=== PATIENT | male | born 1960 | race Caucasian/White ===

== ENCOUNTER 2016-09-06 23:37 | Emergency (ER) | payer OTHER ==
--- NOTE | 2016-09-07 01:46 | ED ORDER SUMMARY ---
..... Patient: TYRONE HERNANDEZ I OrderSheet [facility] VisitID: [id number] [place] [address] 56y, M Registration Date/Time: 09/06/2016 ORDER SHEET Weight: 92.9 kg Allergies: No Known Drug Allergy GENERAL ORDERS: UA-Culture if indicated [facility]gent (23:51 [facility]2016 [facility] (Ack 0:05 AMcQuoid ER Tech1) (0:10 EInderbitzen R.N.) Amylase Urgent (23:51 09/06/2016 [facility]) (Ack 0:05 AMcQuoid ER Tech1) (0:10 EInderbitzen R.N.) Lipase Urgent (23:51 09/06/2016 [facility]) (Ack 0:05 AMcQuoid ER Tech1) (0:10 EInderbitzen R.N.) Cardiac Panel Stat (23:51 09/06/2016 [facility]) (Ack 0:05 AMcQuoid ER Tech1) (0:10 EInderbitzen R.N.) PT with INR Urgent (23:51 09/06/2016 [facility]) (Ack 0:05 AMcQuoid ER Tech1) (0:10 EInderbitzen R.N.) Urine Drug Screen Urgent (23:51 09/06/2016 [facility]) (Ack 0:05 AMcQuoid ER Tech1) (0:10 EInderbitzen R.N.) NPO (23:51 09/06/2016 [facility]) (Ack 0:05 AMcQuoid ER Tech1) (0:10 EInderbitzen R.N.) Abd Series 2V Abd/1V Chest (upper) Urgent (01:09 09/07/2016 [employer] DO) (Ack 1:13 AMcQuoid ER Tech1) (1:32 [facility]) MEDICATION ORDERS: GI Cocktail WHITE PO 30 mL with Lidocaine Viscous Mouth/Throat 15 mL, Maalox Plus Oral 15 mL (NOW) (00:34 09/07/2016 [employer] DO) (0:43 EInderbitzen R.N.) IV FLUIDS: IV NS : initial bolus 1000 mL (1000 mL/hr), then 500 mL/hr for X2 (NOW) (23:50 09/06/2016 [facility]) (Ack 23:59 EInderbitzen R.N.) (0:09 EInderbitzen R.N.) Zofran IV 4 mg (NOW) (23:50 09/06/2016 [facility]) (Ack 23:59 EInderbitzen R.N.) (0:10 EInderbitzen R.N.) Protonix IVP 40mg 40 mg (Mix in NS 10ml over 2min) (01:09 09/07/2016 [facility]) (Ack 1:15 RCollier R.N.) (1:23 RCollier R.N.) ORDER SHEET NOTES: [Electronically signed by Gali Choudhury R.N. (01:54 09/07/2016)] [Electronically signed by Remington Gaitan DO (02:34 09/07/2016)] [Electronically locked/signed by Gali Choudhury R.N. (01:54 09/07/2016)]
--- NOTE | 2016-09-07 01:46 | ED CLINICAL REPORT ---
Clinical Report - Physicians/Mid Levels [facility] [address] [place] [place] [address] 09/06/2016 23:37 Patient: TYRONE HERNANDEZ I Time Seen: 23:47. Arrived- By private vehicle. Historian- patient. HISTORY OF PRESENT ILLNESS Chief Complaint: ABDOMINAL PAIN. This started just prior to arrival and is still present. It was gradual in onset and has been waxing/waning. At its maximum, severity described as moderate. When seen in the E.D., severity described as moderate. Modifying factors- worsened by movement. Relieved by rest. It is described as "pain" and it is described as located in the epigastric area and left upper quadrant and in the upper abdomen and radiating to the upper back. No nausea, vomiting or diarrhea. Similar symptoms previously: ( saw pcp 3 months ago for same symptoms). Evaluation/treatment: abdominal CT scan and labs. Recent medical care: Not recently seen/assessed. REVIEW OF SYSTEMS No constipation, black stools, hematemesis, difficulty with urination or pain with urination. No urinary frequency, bloody stools, fever, headache or sore throat. No chest pain, difficulty breathing, cough or back pain. All systems otherwise negative, except as recorded above. PAST HISTORY Negative. See nurses notes. Problems: no known problems. Surgeries: No history of previous surgery. Additional Surgeries: no known surgeries. Medications: None. Allergies: No Known Drug Allergy. SOCIAL HISTORY Never smoker. No alcohol use or drug use. Is a local resident. ADDITIONAL NOTES The nursing notes have been reviewed. PHYSICAL EXAM Vital Signs: 09/06/2016 23:43 BP: 135/89. HR: 97. RR: 18. O2 saturation: 97%. Temp: 98.6 F. Appearance: Alert. Oriented X3. Patient in mild distress. Eyes: Eyes normal inspection. No scleral icterus or pale conjunctivae. ENT: Pharynx normal. No pharyngeal erythema or tonsillar exudate. The mucous membranes are not dry. Neck: Normal inspection. Neck supple. CVS: Normal heart rate and rhythm. Heart sounds normal. Pulses normal. Respiratory: No respiratory distress. Breath sounds normal. Abdomen: Soft. Moderate tenderness in the upper abdomen, epigastric area and left upper quadrant. No Alcantara's sign present. No organomegaly. No mass. Back: Normal inspection. Skin: Skin warm and dry. Normal skin color. No rash. Normal skin turgor. Extremities: Extremities exhibit normal ROM. No lower extremity edema. Neuro: Oriented X 3. No motor deficit. LABS, X-RAYS, AND EKG Chest X-ray: No acute disease. Normal lung markings present. Normal heart size. Mediastinum normal. Great vessels normal. No infiltrate. Views: PA. Technique: good. The X-rays were interpreted contemporaneously by me. KUB: No acute disease. Gas pattern normal. Views: two-view AP. Technique: good. The X-rays were interpreted contemporaneously by me. Laboratory Tests: UA-Culture if indicated: (ALDEN: 09/06/2016 00:05) ( [facility] 09/07/2016 00:26) Final results Test Result Flag Units (Reference) URINE COLOR YELLOW URINE APPEARANCE CLEAR URINE GLUCOSE NEGATIVE (NEGATIVE) URINE BILIRUBIN NEGATIVE (NEGATIVE) URINE KETONE NEGATIVE (NEGATIVE) URINE SPECIFIC GRAVITY >= 1.030 (1.010-1.030) URINE PH 6.0 (5.0-8.0) URINE PROTEIN NEGATIVE (NEGATIVE) URINE UROBILINOGEN 0.2 EU/dL (0.2-1.0) URINE NITRITE NEGATIVE (NEGATIVE) URINE BLOOD TRACE-INTACT (NEGATIVE) URINE LEUK ESTERASE NEGATIVE (NEGATIVE) URINE RBC 0-1 rbc/hpf (0-1) URINE WBC 0-1 wbc/hpf (0-1) URINE EPITHELIAL CELLS NONE SEEN EPI/hpf (0-5) URINE BACTERIA NONE SEEN (NONE SEEN) URINE COMMENT CULT NOT INDICATED URINE CULTURES ARE SET-UP BASED ON THE FOLLOWING CRITERIA:POSITIVE NITRITEPOSITIVE LEUKOCYTE ESTERASEGREATER THAN 10 WHITE BLOOD CELLSMODERATE (2+) OR GREATER BACTERIA CBC w Diff: (ALDEN: 09/06/2016 00:05) ( [facility] 09/07/2016 00:18) Final results Test Result Flag Units (Reference) WHITE BLOOD COUNT 4.5 K/uL (4.5-11.5) RED BLOOD COUNT 5.22 M/uL (4.50-5.90) HEMOGLOBIN 15.5 gm/dL (13.5-17.5) HEMATOCRIT 44.7 % (41.0-53.0) MEAN CELL VOLUME 86 fL (80-100) MEAN CORPUSCULAR HGB 30 pg (26-34) MEAN CORPUSCULAR HGB CONC 35 g/dL (31-37) RED CELL DISTRIBUTION WIDTH 12.8 % (11.6-14.8) PLATELET COUNT 165 K/uL (150-400) NEUTROPHIL % 43.7 L % (50-75) LYMPH % 41.5 H % (25-40) MONO % 7.4 % (3-14) EOSINOPHIL % 6.8 H % (0-4) BASOPHIL % 0.6 % (0-2) PT with INR: (ALDEN: 09/06/2016 00:05) ( [facility] 09/07/2016 00:26) Final results Test Result Flag Units (Reference) INR 0.9 (0.8-1.2) Low Intensity Therapy: INR 1.5-2.0 PT range 18.5-23.1Mod.Intensity Therapy: INR 2.0-3.0 PT range 23.1-31.5High Intensity Therapy: INR 2.5-3.5 PT range 27.4-35.5High Intensity Therapy 2: INR 3.0-4.0 PT range 31.5-39.3 Urine Drug Screen: (ALDEN: 09/06/2016 00:05) ( [facility] 09/07/2016 00:33) Final results Test Result Flag Units (Reference) AMPHETAMINE/METHAMPHETAMINE NEGATIVE (NEGATIVE) BARBITURATE NEGATIVE (NEGATIVE) BENZODIAZEPINE NEGATIVE (NEGATIVE) CANNABINOID NEGATIVE (NEGATIVE) COCAINE NEGATIVE (NEGATIVE) ECSTASY NEGATIVE (NEGATIVE) METHADONE NEGATIVE (NEGATIVE) OPIATE NEGATIVE (NEGATIVE) The urine drug screen is a qualitative screening test fordrug overdose and abuse. All screen results should beconsidered as presumptive.Drugs screened for are as follows:BenzodiazepinesCocaineAmphetamines/MetamphetaminesTHC (Tetrahydrocannabinol)OpiatesBarbituratesEcstasyMethadonePositive results are unconfirmed. For confirmation, notifythe lab for the specimen to be sent to the reference lab.All confirmations must be performed by a differentmethodology.The ingestion of natural herbal and plant productscontaining Ephedra/Ephedra metabolites can produce in urineone or more substances capable of cross reacting withamphetamine/methamphetamine immunoassays. These testsprovide a preliminary result only. A more specificalternative chemical method must be used to obtain aconfirmed analytical result. Lipase: (ALDEN: 09/06/2016 00:05) ( MsgRcvd 09/07/2016 00:29) Final results Test Result Flag Units (Reference) LIPASE 154 U/L (73-393) AMYLASE 33 U/L (25-115) CHEM 13 PANEL: (ALDEN: 09/06/2016 00:05) ( MsgRcvd 09/07/2016 00:41) Final results Test Result Flag Units (Reference) GLUCOSE 131 H mg/dL (70-110) BUN 15 mg/dL (7-18) CREATININE 1.1 mg/dL (0.6-1.3) Estimated GFR >60 mL/min Estimated GFR- >60 mL/min Note: Persistent reduction over 3 months in eGFR<60 mL/min/1.73 m2 defines CKD. Patients with eGFR values>=60 mL/min/1.73 m2 may also have CKD if evidence ofpersistent proteinuria. Additional information may be foundat www.kidney.org. SODIUM 138 mmol/L (136-145) POTASSIUM 3.7 mmol/L (3.5-5.1) CHLORIDE 102 mmol/L (98-107) CARBON DIOXIDE 25 mmol/L (21-32) CALCIUM 9.0 mg/dL (8.5-10.1) TOTAL PROTEIN 7.3 g/dL (6.4-8.2) ALBUMIN 3.9 g/dL (3.3-5.0) BILIRUBIN, TOTAL 0.4 mg/dL (0.0-1.0) ALKALINE PHOSPHATASE 78 U/L (46-116) AST (SGOT) 49 H U/L (15-37) ALT (SGPT) 61 U/L (12-78) MAGNESIUM 2.0 mg/dL (1.8-2.4) CPK 95 U/L (24-260) TROPONIN I <0.05 L ng/mL (0.00-1.5) TROPONIN REFERENCE RANGE:<0.1 NEGATIVE0.1-1.5 INDETERMINANT>1.5 POSITIVE . Pulse Oximetry: 09/06/2016 23:43 O2 saturation: 97%. (FIO2 - room air). Interpretation: normal. PROGRESS AND PROCEDURES Course of Care: 1 L NS IV. Zofran 4mg IV. GI Cocktail WHITE PO 30 mL with Lidocaine Viscous Mouth/Throat 15 mL, Maalox Plus Oral 15 mL (NOW) 01:45 09/07/16. Patient is stable. Physical exam findings are improved. Symptoms much better. Most consistent with gastritis vs PUD. Pt will need additional work up - likely scope. Pain nearly resolved immediately after GI cocktail. No signs of perforated ulcer. No melena or hematochezia or hematemesis. He has had similar symptoms over the past several months (saw pcp 3 months ago for same). Patient/family counseled. Old ED records reviewed. (two prior visits to [facility] ED for abdominal pain). Disposition: Discharged. Condition: stable and improved. CLINICAL IMPRESSION Acute epigastric abdominal pain of unknown cause. Acute gastritis. No alcoholic gastritis or hemorrhagic gastritis. INSTRUCTIONS Do not work for two days. Drink plenty of fluids. No alcohol. Avoid alcohol and NSAIDS. Examples of NSAIDS include aspirin, ibuprofen (Advil) and naproxen (Aleve). Avoid fatty, fried/greasy, lactose-containing (such as milk, cheese and ice cream), salty and spicy foods. Warnings: Further evaluation is necessary in order to obtain test results and conduct further tests (You will probably need a scope procedure to look into your stomach and possibly an ultrasound of your gallbladder). It is very important to follow up with a physician. CONTROLLED SUBSTANCE WARNINGS. GENERAL WARNINGS: Return or contact your physician immediately if your condition worsens or changes unexpectedly, if not improving as expected, or if other problems arise. Prescription Medications: Prilosec 20 mg capsules: Take 1 capsule orally once daily. Dispense fifteen (15). No refills. Substitution is permissible. Follow-up: Follow up with your doctor [facility] tomorrow. Follow-up with: Remington Scott MD, General Surgeon, , [facility], [address] [facility] [address], [place], [address] Follow up tomorrow. (Electronically signed by Remington Gaitan DO 09/07/2016 2:34)
--- NOTE | 2016-09-07 01:46 | ED NURSING NOTES ---
Clinical Report - Nurses [facility] [address] [place] [address] 09/06/2016 23:37 [id number] Triage time 23:40 Sep 06 2016. Acuity: LEVEL 3. Chief Complaint: (abdominal pain). 23:43 09/06/16. SEPSIS SCREEN: Sepsis Screen. Negative (no infection suspected/documented). SUNI COMA SCORE: Suni Coma Scale: 15- eyes open spontaneously (4); best verbal response- oriented x 4 (5); best motor response- obeys commands (6). --23:46 Gali Choudhury R.N. 23:43 09/06/16. BP: 135/89. HR: 97. RR: 18. O2 saturation: 97%. Temp: 98.6 F. Pain level now 7/10. --23:46 Gali Choudhury R.N. 23:46 09/06/16. --23:46 Gali Choudhury R.N. Weight: 92.9 kg. Height/Length: 68 inches. BMI: 31.1. --23:39 Gali Choudhury R.N. Medications None. --23:44 Gali Choudhury R.N. Medication/allergy information source: the patient. --23:46 Gali Choudhury R.N. Allergies No Known Drug Allergy. --23:44 Gali Choudhury R.N. History Arrived by private vehicle. Historian: patient. Accompanied by family. This started just prior to arrival. No fever, weakness, cough, difficulty breathing or skin rash. Denies muscle aches. Treatment [employer] ST[employer] MERCHANDISER: None. SOCIAL HX: Never smoker. No alcohol use or drug use. ABUSE ASSESSMENT: No report of abuse. SELF HARM ASSESSMENT: A self harm assessment was performed. The patient answered "no" to the question "Have you recently felt down, depressed, or hopeless?", "Have you noticed less interest or pleasure in doing things?", "Do you have thoughts of harming or killing yourself?", "Are you here because you tried to hurt yourself?", "Have you ever tried to hurt yourself before today?", "Have you recently had thoughts about harming or killing others?" and "Do you have any dangerous items in your possession?". NUTRITIONAL RISK ASSESSMENT: The nutritional risk assessment revealed no deficiencies. FUNCTIONAL ASSESSMENT: Functional assessment: no impairments noted. LEARNING NEEDS ASSESSMENT: The learning needs assessment revealed no barriers. SKIN INTEGRITY ASSESSMENT: Skin integrity risk assessment completed. No skin integrity risk identified. --23:46 Gali Choudhury R.N. ( Sudden onset of upper abdominal pain, both left and right sides, pain radiates through to back left side. Constant, aching deep inside). --23:46 Gali Choudhury R.N. PROBLEMS: no known problems. ADDITIONAL SURGERIES: no known surgeries. Interventions ID band on patient. --23:46 Gali Choudhury R.N. PHYSICAL ASSESSMENT 23:49 09/06/16. Ambulatory to room. GENERAL / NEURO / PSYCH: Alert. Oriented X 4. Appears in pain. HEENT: Pupils equal, round and reactive to light. No facial asymmetry noted. Mucous membranes are pink. RESPIRATORY: Respirations not labored. Chest nontender. Breath sounds within normal limits. CVS: Capillary refill less than 2 seconds. Pulses within normal limits. GI / : Abdomen soft and nontender and normal bowel sounds. SKIN: Skin intact. Skin is warm and dry. Normal skin turgor. --23:49 Gali Choudhury R.N. NURSING PROGRESS NOTES 23:49 09/06/16. The initial plan of care for this patient includes an assessment with efforts to address the presence of pain; impairment of the genitourinary system. This plan of care was discussed with the patient. Patient gowned. Reassurance given. Patient identifiers checked. Call light placed in reach. Bed placed in lowest position. Brakes of bed on. Patient ready for evaluation. --23:49 Gali Choudhury R.N. 23:49 09/06/16. ( Patient instructed to provide urine sample.). --23:49 Gali Choudhury R.N. 00:05 09/07/2016 Site #1 started via IV in the right antecubital space with an 20g angiocath, with aseptic technique and good blood return; one attempt. Blood drawn: rainbow set. Labeled in the presence of the patient and sent to the lab. Saline lock flushed with 10 mL saline. --00:09 Gali Choudhury R.NSebastián 00:05 09/07/2016 Started bag #1 1000 mL IV Fluids IV NS (Saline); at 1000 mL/hr over 1 hour(s) via site #1 via IV pump. Allergies verified and confirmed 5 rights. IV patency established. IV site checked: no pain, redness, or swelling. IV flushed thoroughly pre- and post-medication administration. --00:09 Gali Choudhury R.N. 00:06 09/07/2016 Zofran (Ondansetron HCl) IVP 4 mg given over 1 minute(s) via site #1. Allergies verified and confirmed 5 rights. IV patency established. IV site checked: no pain, redness, or swelling. IV flushed thoroughly pre- and post-medication administration. IVP given by RN. --00:10 Gali Choudhury R.NSebastián 00:40 09/07/2016 GI COCKTAIL WHITE (Simethicone) PO Oral Suspension 30 mL given. Allergies verified and confirmed 5 rights. --00:43 Gali Choudhury R.NSebastián 00:59 09/07/16. BP: 121/81. HR: 72. RR: 18. O2 saturation: 97%. --00:59 Gali Choudhury R.NSebastián 00:59 09/07/16. Reassessment after medication administered. He has had no adverse reaction. Overall patient status is improved- he states feels better. ( still has pain on left side both front and back.). --00:59 Gali Choudhury R.N. 01:20 09/07/2016 PROTONIX (Pantoprazole Sodium) IVP 40 mg given diluted in NS 10mL over 2 minute(s) via site #1. Allergies verified and confirmed 5 rights. IV patency established. IV site checked: no pain, redness, or swelling. IV flushed thoroughly pre- and post-medication administration. IVP given by RN. --01:23 Lynette Fernandez R.N. Patient transported to radiology by stretcher with tech. --01:23 Lynette Fernandez R.N. Patient returned from radiology by stretcher with tech. --01:31 Lynette Fernandez R.N. DISPOSITION / DISCHARGE 01:05 09/07/2016 IV Fluids IV NS Discontinued: completed. Total amount infused: 1000 mL. IV patency established. IV site checked: no pain, redness, or swelling. IV flushed thoroughly. --01:52 Gali Choudhuyr R.N. 01:48 09/07/2016 Site #1 removed upon discharge. Catheter intact. Pressure dressing applied. --01:53 Gali Choudhury R.N. 01:53 09/07/16. Departure time: 01:Sep 07 2016. Condition at departure: improved and stable. The goals identified in the patient's plan of care were met. No learning barriers present. Reviewed medication(s) side effects, precautions, dosing and course information. Prescription(s) given to the patient. Patient and spouse verbalized understanding. Written instructions provided in Hungarian. The patient was discharged home and accompanied by spouse. He left the Emergency Department ambulatory and via private vehicle. Spouse driving. --01:54 Gali Choudhury R.N. 01:53 09/07/16. BP: 124/78. HR: 84. RR: 18. O2 saturation: 100%. Temp: 98.5 F. Pain level now 08/19. --01:54 Gali Choudhury R.N. Locked/Released at 09/07/2016 1:54 by Gali Choudhury R.N.
--- NOTE | 2016-09-07 01:46 | ED ORDER SUMMARY ---
..... Patient: TYRONE HERNANDEZ I OrderSheet [facility] VisitID: [id number] [place] [address] 56y, M Registration Date/Time: 09/06/2016 ORDER SHEET Weight: 92.9 kg Allergies: No Known Drug Allergy GENERAL ORDERS: UA-Culture if indicated Urgent (23:51 [facility]06/2016 [facility] (Ack 0:05 AMcQuoid ER Tech1) (0:10 EInderbitzen R.N.) Amylase Urgent (23:51 09/06/2016 [facility]) (Ack 0:05 AMcQuoid ER Tech1) (0:10 EInderbitzen R.N.) Lipase Urgent (23:51 09/06/2016 [facility]) (Ack 0:05 AMcQuoid ER Tech1) (0:10 EInderbitzen R.N.) Cardiac Panel Stat (23:51 09/06/2016 [facility]) (Ack 0:05 AMcQuoid ER Tech1) (0:10 EInderbitzen R.N.) PT with INR Urgent (23:51 09/06/2016 [facility]) (Ack 0:05 AMcQuoid ER Tech1) (0:10 EInderbitzen R.N.) Urine Drug Screen Urgent (23:51 09/06/2016 [facility]) (Ack 0:05 AMcQuoid ER Tech1) (0:10 EInderbitzen R.N.) NPO (23:51 09/06/2016 [facility]) (Ack 0:05 AMcQuoid ER Tech1) (0:10 EInderbitzen R.N.) Abd Series 2V Abd/1V Chest (upper) Urgent (01:09 09/07/2016 [facility] DO) (Ack 1:13 AMcQuoid ER Tech1) (1:32 [facility]) MEDICATION ORDERS: GI Cocktail WHITE PO 30 mL with Lidocaine Viscous Mouth/Throat 15 mL, Maalox Plus Oral 15 mL (NOW) (00:34 09/07/2016 [facility] DO) (0:43 EInderbitzen R.N.) IV FLUIDS: IV NS : initial bolus 1000 mL (1000 mL/hr), then 500 mL/hr for X2 (NOW) (23:50 09/06/2016 [facility]) (Ack 23:59 EInderbitzen R.N.) (0:09 EInderbitzen R.N.) Zofran IV 4 mg (NOW) (23:50 09/06/2016 [facility]) (Ack 23:59 EInderbitzen R.N.) (0:10 EInderbitzen R.N.) Protonix IVP 40mg 40 mg (Mix in NS 10ml over 2min) (01:09 09/07/2016 [facility]) (Ack 1:15 RCollier R.N.) (1:23 RCollier R.N.) ORDER SHEET NOTES: [Electronically signed by Gali Choudhury R.N. (01:54 09/07/2016)] [Electronically signed by Remington Gaitan DO (02:34 09/07/2016)] [Electronically locked/signed by Gali Choudhury R.N. (01:54 09/07/2016)]
--- NOTE | 2016-09-07 02:34 | ED MED RECONCILIATION SUMMARY ---
Patient: TYRONE HERNANDEZ I Medication Reconciliation Report [facility] VisitID: [id number] [address] [place] [address] 56y, M Registration Date/Time: 09/06/2016 Weight: 92.9 kg Height/Length: 68 in. BMI: 31.1 ALLERGIES: No Known Drug Allergy The patient's Home Medications are listed below: NONE. The source(s) of the original Home Medication information: patient The following Medications were given to the patient in the Emergency Department: IV NS IV Fluids bolus 0, then 1000 mL/hr, administered: 09/07/2016 12:05:00 AM Zofran [IVP] IVP 4 mg, administered: 09/07/2016 12:06:00 AM GI COCKTAIL WHITE [PO] PO 30 mL, administered: 09/07/2016 12:40:00 AM PROTONIX [IVP] IVP 40 mg diluted in NS 10 mL, administered: 09/07/2016 1:20:00 AM The following Medications were prescribed to the patient: Prilosec 20 mg capsules: Take 1 capsule orally once daily. Dispense fifteen (15). No refills. Substitution is permissible. -- Remington Gaitan DO
--- NOTE | 2016-09-07 02:34 | ED DISCHARGE INSTRUCTIONS ---
Patient: TYRONE HERNANDEZ I General Instructions [facility] VisitID: [id number] [place] [address] 56y, M Registration Date/Time: 09/06/2016 Acute epigastric abdominal pain of unknown cause. Acute gastritis. No alcoholic gastritis or hemorrhagic gastritis. INSTRUCTIONS Do not work for two days. Drink plenty of fluids. No alcohol. Avoid alcohol and NSAIDS. Examples of NSAIDS include aspirin, ibuprofen (Advil) and naproxen (Aleve). Avoid fatty, fried/greasy, lactose-containing (such as milk, cheese and ice cream), salty and spicy foods. Warnings: Further evaluation is necessary in order to obtain test results and conduct further tests (You will probably need a scope procedure to look into your stomach and possibly an ultrasound of your gallbladder). It is very important to follow up with a physician. CONTROLLED SUBSTANCE WARNINGS. GENERAL WARNINGS: Return or contact your physician immediately if your condition worsens or changes unexpectedly, if not improving as expected, or if other problems arise. Prescription Medications: Prilosec 20 mg capsules: Take 1 capsule orally once daily. Dispense fifteen (15). No refills. Substitution is permissible. Follow-up: Follow up with your doctor [facility] tomorrow. Follow-up with: Remington Scott MD, General Surgeon, , [facility], [address] [place] [address] Follow up tomorrow. ADDITIONAL INFORMATION Epigastric Pain (Uncertain Cause) Epigastric pain can be a sign of disease in the upper abdomen. Common causes include: Acid reflux (stomach acid flowing up into the esophagus) Gastritis (irritation of the stomach lining) Peptic Ulcer Disease Inflammation of the pancreas Gallstone Infection in the gallbladder Pain may be dull or burning. It may spread upward to the chest or to the back. There may be other symptoms such as belching, bloating, cramps or hunger pains. There may be weight loss or poor appetite, nausea or vomiting. Since the diagnosis of your pain is not certain yet, further tests will be needed. Sometimes the doctor will treat you for the most likely condition to see if there is improvement before doing further tests. Home Care: Unless told otherwise, you may try antacids (Mylanta or Maalox) help neutralize stomach acid. This may relieve your pain. Take 1-2 tablespoons or tablets one hour after meals and at bedtime. The liquid form coats the stomach better than the chewable tablets and is preferred. If Tagamet (cimetidine), Zantac (ranitidine), or Carafate (sucralfate) has also been prescribed, allow one hour between taking this medicine and taking the antacids. Avoid foods that irritate the stomach. Follow a light diet until you are feeling better. Avoid alcohol, caffeine, and tobacco. Talk to your doctor before taking any dhth-duc-jdlbwkv medicine that contains aspirin or an anti-inflammatory drug such as ibuprofen, Advil, Motrin, Naprosyn, or Aleve. Follow Up with your doctor or as advised if you do not improve over the next 48 hours. Get Prompt Medical Attention if any of the following occur: Stomach pain worsens or moves to the right lower part of the abdomen Chest pain appears, or if it worsens or spreads to the chest, back, neck, shoulder, or arm Frequent vomiting (cant keep down liquids) Blood in the stool or vomit (red or black color) Feeling weak or dizzy, fainting, or having trouble breathing Fever of 100.4F (38C) or higher, or as directed by your healthcare provider Abdominal swelling Gastritis Versus Ulcer (No Antibiotic Tx) The symptoms of gastritis and peptic ulcer are very similar. Both can cause a dull ache or burning pain in the upper abdomen. Other symptoms include nausea, vomiting, loss of appetite, and belching or bloating. Blood in the vomit or stools (red or black) is a sign of bleeding in the stomach. This requires immediate medical attention. A Peptic Ulcer is an open sore in the lining of the stomach or duodenum (upper intestine). The most common cause of peptic ulcer disease is a bacterial infection (H pylori) in the stomach. Another common cause is taking anti-inflammatory medications (such as ibuprofen, prednisone, and aspirin). Gastritis is an irritation of the stomach lining. It can be acute (recent) or chronic (lasting a long time). Gastritis can be caused by overuse of alcohol or anti-inflammatory medications (such as aspirin, ibuprofen, prednisone). H pyloriinfection can also cause chronic gastritis. Tests for H pyloriare used to screen for bacterial infection. If no infection is found, ulcer and gastritis can be treated by stopping the cause, such as anti-inflammatory medications, alcohol, caffeine, and tobacco, and treating with antacids plus an acid margot medication. If H pylori infection is found, antibiotics will be prescribed along with an acid margot. Persons 55 years and older may undergo other tests before treatment is started. Two common tests are used to evaluate your symptoms. An upper GI series is an x-ray taken after you drink a chalky liquid called barium. This coats the stomach and allows an ulcer to show up on the x-ray. Another test is called endoscopy during which a long thin tube called an endoscope is passed down your throat to the stomach. A camera at the end of the scope allows the doctor to view inside the stomach to check the cause of your symptoms. Home Care: Take the prescribed acid margot medication for the full course of treatment even if you begin to feel better sooner. This medication can take up to several days to fully control your symptoms. If you cant afford the prescribed medication, you can try yprk-yzx-jbxpbdn acid blockers, such as Pepcid AC, Tagamet, Zantac, or Aciphex. If these do not relieve your symptoms, a stronger acid-margot can be tried, such as Prilosec OTC. If you have been prescribed an antibiotic to treat H pyloriinfection, finish the full course of medication. Do so even if you begin to feel better sooner. If you stop the medication too soon, the infection can return and be harder to treat. You can use antacids, such as Tums, Rolaids, Mylanta, or Maalox, for pain. This will be useful the first few days after starting acid blockers when the blockers havent started working yet. Follow the directions on the label. Liquid antacids may work better than tablets. Note that antacids can interfere with absorption of certain medications. Specifically, do not take Tagamet (cimetidine), Zantac (ranitidine), or Carafate (sucralfate) within 1 hour of taking an antacid. Talk with your pharmacist if you have any questions. Although foods do not cause an ulcer, symptoms can be worsened by certain foods. Limit or avoid fatty, fried, and spicy foods, as well as coffee, chocolate, mint, and foods with high acid content such as tomatoes and citrus fruit and juices (orange, grapefruit, lemon). Avoid alcohol, caffeine, and tobacco, which can delay healing. Avoid aspirin and anti-inflammatory medications such as ibuprofen (Advil, Motrin) and naproxen (Naprosyn, Aleve). Acetaminophen (Tylenol) is safe to use. Do not take more than the amount listed on the label. Follow Up with your doctor or as advised. Further testing may be needed. If you do not begin to improve over the next 4 days, contact your doctor. If you had tests, youll be notified of any new findings that affect your care. Get Prompt Medical Attention if any of the following occur: Stomach pain gets worse or moves to the lower right abdomen (appendix area) Chest pain appears or gets worse, or spreads to the back, neck, shoulder, or arm Frequent vomiting (cant keep down liquids) Blood in the stool or vomit (red or black in color) Feeling weak or dizzy, fainting, or trouble breathing Fever of 100.4F (38C) or higher, or as directed by your healthcare provider [place] Diet A bland diet is used for patients with an upset stomach. It consists of foods that are mild and easy to digest. It is better to eat small frequent meals rather than three large meals a day. BEVERAGES OK: Fruit juices, non-caffeinated teas and coffee, non-carbonated lynn AVOID: Carbonated beverage, caffeinated tea and coffee, all alcoholic beverages BREAD OK: Refined white, wheat or rye bread, rhiannon or soda crackers, [place] toast, plain rolls, bagels AVOID: Whole-grain bread CEREAL OK: Refined cereals: cooked or ready to eat AVOID: Whole grain cereals and granola, or those containing bran, seeds or nuts DESSERTS OK: Peanut butter and all others except those to "avoid" AVOID: Chocolate, cocoa, coconut, popcorn, nuts, seeds, jam, marmalade FRUITS OK: Canned, cooked, frozen or fresh fruits without seeds or tough skin AVOID: Olives, skin and seeds of fruit MEATS OK: All fresh or preserved meat, fish and fowl AVOID: Any that are prepared with those spices to "avoid" CHEESE & EGGS OK: Eggs, cottage cheese, cream cheese, other cheeses AVOID: All cheeses made with those spices to "avoid" POTATOES & PASTA OK: Potato, rice, macaroni, noodles, spaghetti AVOID: None SOUPS OK: All soups without heavy seasoning AVOID: Soups made with those spices to "avoid" VEGETABLES OK: Canned, cooked, fresh or frozen mildly flavored vegetables without seeds, skins or coarse fiber AVOID: Vegetables prepared with those spices to "avoid"; skin and seeds of vegetables and those with coarse fiber SPICES OK: Salt, lemon and mentasta juice, vinegar, all extracts, maciel, cinnamon, thyme, mace, allspice, paprika AVOID: [place] powder, cloves, pepper, seed spices, garlic, gravy pickles, highly seasoned salad dressings Omeprazole Magnesium Gastro-resistant tablet What is this medicine? OMEPRAZOLE (oh ME pray zol) prevents the production of acid in the stomach. It is used to treat the symptoms of heartburn. You can buy this medicine without a prescription. This product is not for long-term use, unless otherwise directed by your doctor or health caregiver services home. How should I use this medicine? Take this medicine by mouth. Follow the directions on the product label. If you are taking this medicine without a prescription, take one tablet every day. Do not use for longer than 14 days or repeat a course of treatment more often than every 4 months unless directed by a doctor or healthcare professional. Take your dose at regular intervals every 24 hours. Swallow the tablet whole with a drink of water. Do not crush, break or chew. This medicine works best if taken on an empty stomach 30 minutes before breakfast. If you are using this medicine with the prescription of your doctor or healthcare professional, follow the directions you were given. Do not take your medicine more often than directed. Talk to your quality rn regarding the use of this medicine in children. Special care may be needed. What side effects may I notice from receiving this medicine? Side effects that you should report to your doctor or health caregiver services home as soon as possible: allergic reactions like skin rash, itching or hives, swelling of the face, lips, or tongue bone, muscle or joint pain breathing problems chest pain or chest tightness dark yellow or brown urine diarrhea dizziness fast, irregular heartbeat feeling faint or lightheaded fever or sore throat muscle spasm palpitations redness, blistering, peeling or loosening of the skin, including inside the mouth seizures tremors unusual bleeding or bruising unusually weak or tired yellowing of the eyes or skin Side effects that usually do not require medical attention (Report these to your doctor or health caregiver services home if they continue or are bothersome.): constipation dry mouth headache loose stools nausea What may interact with this medicine? Do not take this medicine with any of the following medications: atazanavir clopidogrel nelfinavir This medicine may also interact with the following medications: ampicillin certain medicines for anxiety or sleep certain medicines that treat or prevent blood clots like warfarin cyclosporine diazepam digoxin disulfiram iron salts phenytoin prescription medicine for fungal or yeast infection like itraconazole, ketoconazole, voriconazole saquinavir tacrolimus What if I miss a dose? If you miss a dose, take it as soon as you can. If it is almost time for your next dose, take only that dose. Do not take double or extra doses. Where should I keep my medicine? Keep out of the reach of children. Store at room temperature between 20 and 25 degrees C (68 and 77 degrees F). Protect from light and moisture. Throw away any unused medicine after the expiration date. What should I tell my health care provider before I take this medicine? They need to know if you have any of these conditions: black or bloody stools chest pain difficulty swallowing have had heartburn for over 3 months have heartburn with dizziness, lightheadedness or sweating liver disease stomach pain unexplained weight loss vomiting with blood wheezing an unusual or allergic reaction to omeprazole, other medicines, foods, dyes, or preservatives or trying to get breast-feeding What should I watch for while using this medicine? It can take several days before your heartburn gets better. Check with your doctor or health caregiver services home if your condition does not start to get better, or if it gets worse. Do not treat diarrhea with over the counter products. Contact your doctor if you have diarrhea that lasts more than 2 days or if it is severe and watery. Do not treat yourself for heartburn with this medicine for more than 14 days in a row. You should only use this medicine for a 2-week treatment period once every 4 months. If your symptoms return shortly after your therapy is complete, or within the 4 month time frame, call your doctor or health caregiver services home. You have been given the following additional information: Epigastric Pain (Uncertain Cause) Gastritis Vs. Ulcer Diet, [place] (Adult) Omeprazole Magnesium Gastro-resistant tablet Do not work for two days. (Electronically signed by Remington Gaitan DO 09/07/2016 2:34)
--- NOTE | 2016-09-07 02:34 | ED MAR SUMMARY ---
..... Medication Administration Record [facility] [address] [place] [address] Patient: TYRONE HERNANDEZ I Visit ID: [id number] 56y, M Weight: 92.9 kg Height/Length: 68 in BMI: 31.1 ALLERGIES: No Known Drug Allergy Start 00:05 09/07/2016 Gali Choudhury R.N., Stop 01:05 09/07/2016 Gali Choudhury R.N. Medication Administered: IV NS (SALINE), Dose: IV Fluids over 1 hour(s), Rate: 1000 mL/hr, Dispensed: 1000 mL bag, Site: #1 right AC. Medication Ordered: IV NS : initial bolus 1000 mL (1000 mL/hr), then 500 mL/hr for X2 (NOW). Given 00:06 09/07/2016 Gali Choudhury R.N. Medication Administered: ZOFRAN [IVP] (ONDANSETRON HCL), Dose: 4 mg IVP over 1 minute(s), Site: #1 right AC. Medication Ordered: Zofran IV 4 mg (NOW). Given 00:40 09/07/2016 Gali Choudhury R.N. Medication Administered: GI COCKTAIL WHITE [PO] (SIMETHICONE), Dose: 30 mL Oral Suspension PO. Medication Ordered: GI Cocktail WHITE PO 30 mL with Lidocaine Viscous Mouth/Throat 15 mL, Maalox Plus Oral 15 mL (NOW). Given 01:20 09/07/2016 Lynette Fernandez R.N. Medication Administered: PROTONIX [IVP] (PANTOPRAZOLE SODIUM), Dose: 40 mg IVP over 2 minute(s), In: NS 10 mL, Site: #1 right AC. Medication Ordered: Protonix IVP 40mg 40 mg (Mix in NS 10ml over 2min).
--- NOTE | 2016-09-07 02:34 | ED DISCHARGE INSTRUCTIONS ---
Patient: TYRONE HERNANDEZ I General Instructions Formerly [facility] VisitID: [id number] [place] [address] 56y, M Registration Date/Time: 09/06/2016 Acute epigastric abdominal pain of unknown cause. Acute gastritis. No alcoholic gastritis or hemorrhagic gastritis. INSTRUCTIONS Do not work for two days. Drink plenty of fluids. No alcohol. Avoid alcohol and NSAIDS. Examples of NSAIDS include aspirin, ibuprofen (Advil) and naproxen (Aleve). Avoid fatty, fried/greasy, lactose-containing (such as milk, cheese and ice cream), salty and spicy foods. Warnings: Further evaluation is necessary in order to obtain test results and conduct further tests (You will probably need a scope procedure to look into your stomach and possibly an ultrasound of your gallbladder). It is very important to follow up with a physician. CONTROLLED SUBSTANCE WARNINGS. GENERAL WARNINGS: Return or contact your physician immediately if your condition worsens or changes unexpectedly, if not improving as expected, or if other problems arise. Prescription Medications: Prilosec 20 mg capsules: Take 1 capsule orally once daily. Dispense fifteen (15). No refills. Substitution is permissible. Follow-up: Follow up with your doctor [facility] tomorrow. Follow-up with: Remington Scott MD, General Surgeon, , [facility], [address] [place] [address] Follow up tomorrow. ADDITIONAL INFORMATION Epigastric Pain (Uncertain Cause) Epigastric pain can be a sign of disease in the upper abdomen. Common causes include: Acid reflux (stomach acid flowing up into the esophagus) Gastritis (irritation of the stomach lining) Peptic Ulcer Disease Inflammation of the pancreas Gallstone Infection in the gallbladder Pain may be dull or burning. It may spread upward to the chest or to the back. There may be other symptoms such as belching, bloating, cramps or hunger pains. There may be weight loss or poor appetite, nausea or vomiting. Since the diagnosis of your pain is not certain yet, further tests will be needed. Sometimes the doctor will treat you for the most likely condition to see if there is improvement before doing further tests. Home Care: Unless told otherwise, you may try antacids (Mylanta or Maalox) help neutralize stomach acid. This may relieve your pain. Take 1-2 tablespoons or tablets one hour after meals and at bedtime. The liquid form coats the stomach better than the chewable tablets and is preferred. If Tagamet (cimetidine), Zantac (ranitidine), or Carafate (sucralfate) has also been prescribed, allow one hour between taking this medicine and taking the antacids. Avoid foods that irritate the stomach. Follow a light diet until you are feeling better. Avoid alcohol, caffeine, and tobacco. Talk to your doctor before taking any djkq-jsr-ojkoeql medicine that contains aspirin or an anti-inflammatory drug such as ibuprofen, Advil, Motrin, Naprosyn, or Aleve. Follow Up with your doctor or as advised if you do not improve over the next 48 hours. Get Prompt Medical Attention if any of the following occur: Stomach pain worsens or moves to the right lower part of the abdomen Chest pain appears, or if it worsens or spreads to the chest, back, neck, shoulder, or arm Frequent vomiting (cant keep down liquids) Blood in the stool or vomit (red or black color) Feeling weak or dizzy, fainting, or having trouble breathing Fever of 100.4F (38C) or higher, or as directed by your healthcare provider Abdominal swelling Gastritis Versus Ulcer (No Antibiotic Tx) The symptoms of gastritis and peptic ulcer are very similar. Both can cause a dull ache or burning pain in the upper abdomen. Other symptoms include nausea, vomiting, loss of appetite, and belching or bloating. Blood in the vomit or stools (red or black) is a sign of bleeding in the stomach. This requires immediate medical attention. A Peptic Ulcer is an open sore in the lining of the stomach or duodenum (upper intestine). The most common cause of peptic ulcer disease is a bacterial infection (H pylori) in the stomach. Another common cause is taking anti-inflammatory medications (such as ibuprofen, prednisone, and aspirin). Gastritis is an irritation of the stomach lining. It can be acute (recent) or chronic (lasting a long time). Gastritis can be caused by overuse of alcohol or anti-inflammatory medications (such as aspirin, ibuprofen, prednisone). H pyloriinfection can also cause chronic gastritis. Tests for H pyloriare used to screen for bacterial infection. If no infection is found, ulcer and gastritis can be treated by stopping the cause, such as anti-inflammatory medications, alcohol, caffeine, and tobacco, and treating with antacids plus an acid margot medication. If H pylori infection is found, antibiotics will be prescribed along with an acid margot. Persons 55 years and older may undergo other tests before treatment is started. Two common tests are used to evaluate your symptoms. An upper GI series is an x-ray taken after you drink a chalky liquid called barium. This coats the stomach and allows an ulcer to show up on the x-ray. Another test is called endoscopy during which a long thin tube called an endoscope is passed down your throat to the stomach. A camera at the end of the scope allows the doctor to view inside the stomach to check the cause of your symptoms. Home Care: Take the prescribed acid margot medication for the full course of treatment even if you begin to feel better sooner. This medication can take up to several days to fully control your symptoms. If you cant afford the prescribed medication, you can try nnhj-lxr-dvbrcog acid blockers, such as Pepcid AC, Tagamet, Zantac, or Aciphex. If these do not relieve your symptoms, a stronger acid-margot can be tried, such as Prilosec OTC. If you have been prescribed an antibiotic to treat H pyloriinfection, finish the full course of medication. Do so even if you begin to feel better sooner. If you stop the medication too soon, the infection can return and be harder to treat. You can use antacids, such as Tums, Rolaids, Mylanta, or Maalox, for pain. This will be useful the first few days after starting acid blockers when the blockers havent started working yet. Follow the directions on the label. Liquid antacids may work better than tablets. Note that antacids can interfere with absorption of certain medications. Specifically, do not take Tagamet (cimetidine), Zantac (ranitidine), or Carafate (sucralfate) within 1 hour of taking an antacid. Talk with your pharmacist if you have any questions. Although foods do not cause an ulcer, symptoms can be worsened by certain foods. Limit or avoid fatty, fried, and spicy foods, as well as coffee, chocolate, mint, and foods with high acid content such as tomatoes and citrus fruit and juices (orange, grapefruit, lemon). Avoid alcohol, caffeine, and tobacco, which can delay healing. Avoid aspirin and anti-inflammatory medications such as ibuprofen (Advil, Motrin) and naproxen (Naprosyn, Aleve). Acetaminophen (Tylenol) is safe to use. Do not take more than the amount listed on the label. Follow Up with your doctor or as advised. Further testing may be needed. If you do not begin to improve over the next 4 days, contact your doctor. If you had tests, youll be notified of any new findings that affect your care. Get Prompt Medical Attention if any of the following occur: Stomach pain gets worse or moves to the lower right abdomen (appendix area) Chest pain appears or gets worse, or spreads to the back, neck, shoulder, or arm Frequent vomiting (cant keep down liquids) Blood in the stool or vomit (red or black in color) Feeling weak or dizzy, fainting, or trouble breathing Fever of 100.4F (38C) or higher, or as directed by your healthcare provider [place] Diet A bland diet is used for patients with an upset stomach. It consists of foods that are mild and easy to digest. It is better to eat small frequent meals rather than three large meals a day. BEVERAGES OK: Fruit juices, non-caffeinated teas and coffee, non-carbonated lynn AVOID: Carbonated beverage, caffeinated tea and coffee, all alcoholic beverages BREAD OK: Refined white, wheat or rye bread, rhiannon or soda crackers, [place] toast, plain rolls, bagels AVOID: Whole-grain bread CEREAL OK: Refined cereals: cooked or ready to eat AVOID: Whole grain cereals and granola, or those containing bran, seeds or nuts DESSERTS OK: Peanut butter and all others except those to "avoid" AVOID: Chocolate, cocoa, coconut, popcorn, nuts, seeds, jam, marmalade FRUITS OK: Canned, cooked, frozen or fresh fruits without seeds or tough skin AVOID: Olives, skin and seeds of fruit MEATS OK: All fresh or preserved meat, fish and fowl AVOID: Any that are prepared with those spices to "avoid" CHEESE & EGGS OK: Eggs, cottage cheese, cream cheese, other cheeses AVOID: All cheeses made with those spices to "avoid" POTATOES & PASTA OK: Potato, rice, macaroni, noodles, spaghetti AVOID: None SOUPS OK: All soups without heavy seasoning AVOID: Soups made with those spices to "avoid" VEGETABLES OK: Canned, cooked, fresh or frozen mildly flavored vegetables without seeds, skins or coarse fiber AVOID: Vegetables prepared with those spices to "avoid"; skin and seeds of vegetables and those with coarse fiber SPICES OK: Salt, lemon and eyak juice, vinegar, all extracts, maciel, cinnamon, thyme, mace, allspice, paprika AVOID: [place] powder, cloves, pepper, seed spices, garlic, gravy pickles, highly seasoned salad dressings Omeprazole Magnesium Gastro-resistant tablet What is this medicine? OMEPRAZOLE (oh ME pray zol) prevents the production of acid in the stomach. It is used to treat the symptoms of heartburn. You can buy this medicine without a prescription. This product is not for long-term use, unless otherwise directed by your doctor or health healthcare customer service. How should I use this medicine? Take this medicine by mouth. Follow the directions on the product label. If you are taking this medicine without a prescription, take one tablet every day. Do not use for longer than 14 days or repeat a course of treatment more often than every 4 months unless directed by a doctor or healthcare professional. Take your dose at regular intervals every 24 hours. Swallow the tablet whole with a drink of water. Do not crush, break or chew. This medicine works best if taken on an empty stomach 30 minutes before breakfast. If you are using this medicine with the prescription of your doctor or healthcare professional, follow the directions you were given. Do not take your medicine more often than directed. Talk to your maintenance machinist regarding the use of this medicine in children. Special care may be needed. What side effects may I notice from receiving this medicine? Side effects that you should report to your doctor or health healthcare customer service as soon as possible: allergic reactions like skin rash, itching or hives, swelling of the face, lips, or tongue bone, muscle or joint pain breathing problems chest pain or chest tightness dark yellow or brown urine diarrhea dizziness fast, irregular heartbeat feeling faint or lightheaded fever or sore throat muscle spasm palpitations redness, blistering, peeling or loosening of the skin, including inside the mouth seizures tremors unusual bleeding or bruising unusually weak or tired yellowing of the eyes or skin Side effects that usually do not require medical attention (Report these to your doctor or health healthcare customer service if they continue or are bothersome.): constipation dry mouth headache loose stools nausea What may interact with this medicine? Do not take this medicine with any of the following medications: atazanavir clopidogrel nelfinavir This medicine may also interact with the following medications: ampicillin certain medicines for anxiety or sleep certain medicines that treat or prevent blood clots like warfarin cyclosporine diazepam digoxin disulfiram iron salts phenytoin prescription medicine for fungal or yeast infection like itraconazole, ketoconazole, voriconazole saquinavir tacrolimus What if I miss a dose? If you miss a dose, take it as soon as you can. If it is almost time for your next dose, take only that dose. Do not take double or extra doses. Where should I keep my medicine? Keep out of the reach of children. Store at room temperature between 20 and 25 degrees C (68 and 77 degrees F). Protect from light and moisture. Throw away any unused medicine after the expiration date. What should I tell my health care provider before I take this medicine? They need to know if you have any of these conditions: black or bloody stools chest pain difficulty swallowing have had heartburn for over 3 months have heartburn with dizziness, lightheadedness or sweating liver disease stomach pain unexplained weight loss vomiting with blood wheezing an unusual or allergic reaction to omeprazole, other medicines, foods, dyes, or preservatives or trying to get breast-feeding What should I watch for while using this medicine? It can take several days before your heartburn gets better. Check with your doctor or health healthcare customer service if your condition does not start to get better, or if it gets worse. Do not treat diarrhea with over the counter products. Contact your doctor if you have diarrhea that lasts more than 2 days or if it is severe and watery. Do not treat yourself for heartburn with this medicine for more than 14 days in a row. You should only use this medicine for a 2-week treatment period once every 4 months. If your symptoms return shortly after your therapy is complete, or within the 4 month time frame, call your doctor or health healthcare customer service. You have been given the following additional information: Epigastric Pain (Uncertain Cause) Gastritis Vs. Ulcer Diet, [place] (Adult) Omeprazole Magnesium Gastro-resistant tablet Do not work for two days. (Electronically signed by Remington Gaitan DO 09/07/2016 2:34)
--- NOTE | 2016-09-07 02:34 | ED MED RECONCILIATION SUMMARY ---
Patient: TYRONE HERNANDEZ I Medication Reconciliation Report [facility] VisitID: [id number] [place] [address] 56y, M Registration Date/Time: 09/06/2016 Weight: 92.9 kg Height/Length: 68 in. BMI: 31.1 ALLERGIES: No Known Drug Allergy The patient's Home Medications are listed below: NONE. The source(s) of the original Home Medication information: patient The following Medications were given to the patient in the Emergency Department: IV NS IV Fluids bolus 0, then 1000 mL/hr, administered: 09/07/2016 12:05:00 AM Zofran [IVP] IVP 4 mg, administered: 09/07/2016 12:06:00 AM GI COCKTAIL WHITE [PO] PO 30 mL, administered: 09/07/2016 12:40:00 AM PROTONIX [IVP] IVP 40 mg diluted in NS 10 mL, administered: 09/07/2016 1:20:00 AM The following Medications were prescribed to the patient: Prilosec 20 mg capsules: Take 1 capsule orally once daily. Dispense fifteen (15). No refills. Substitution is permissible. -- Remington Gaitan DO
--- NOTE | 2016-09-07 02:34 | ED MAR SUMMARY ---
..... Medication Administration Record [facility] [address] [place] [address] Patient: TYRONE HERNANDEZ I Visit ID: [id number] 56y, M Weight: 92.9 kg Height/Length: 68 in BMI: 31.1 ALLERGIES: No Known Drug Allergy Start 00:05 09/07/2016 Gali Choudhury R.N., Stop 01:05 09/07/2016 Gali Choudhury R.N. Medication Administered: IV NS (SALINE), Dose: IV Fluids over 1 hour(s), Rate: 1000 mL/hr, Dispensed: 1000 mL bag, Site: #1 right AC. Medication Ordered: IV NS : initial bolus 1000 mL (1000 mL/hr), then 500 mL/hr for X2 (NOW). Given 00:06 09/07/2016 Gali Choudhury R.N. Medication Administered: ZOFRAN [IVP] (ONDANSETRON HCL), Dose: 4 mg IVP over 1 minute(s), Site: #1 right AC. Medication Ordered: Zofran IV 4 mg (NOW). Given 00:40 09/07/2016 Gali Choudhury R.N. Medication Administered: GI COCKTAIL WHITE [PO] (SIMETHICONE), Dose: 30 mL Oral Suspension PO. Medication Ordered: GI Cocktail WHITE PO 30 mL with Lidocaine Viscous Mouth/Throat 15 mL, Maalox Plus Oral 15 mL (NOW). Given 01:20 09/07/2016 Lynette Fernandez R.N. Medication Administered: PROTONIX [IVP] (PANTOPRAZOLE SODIUM), Dose: 40 mg IVP over 2 minute(s), In: NS 10 mL, Site: #1 right AC. Medication Ordered: Protonix IVP 40mg 40 mg (Mix in NS 10ml over 2min).
--- NOTE | 2016-09-07 06:10 | DIAGNOSTIC IMAGING REPORT ---
PROCEDURE: XR ABD SERIES 2V ABD/1V CHEST INDICATION: ABDOMINAL PAIN TECHNIQUE: AP supine and upright views with PA view chest. COMPARISON: None. FINDINGS: ABDOMEN: Bowel pattern is normal. No evidence of free air. Soft tissues and osseous structures are normal. Mild degenerative change of the lumbar spine. CHEST: Lungs are clear. Heart and mediastinum are normal. Thorax is normal. IMPRESSION: 1. Negative acute abdomen series.
== END 2016-09-07 01:53 | disposition home or self-care (01) ==
LOC: ED SRH 23:37
DX: K29.00 Acute gastritis without bleeding (principal); R10.13 Epigastric pain
CPT/HCPCS: 90004; 90100; 90616; 92235; 92530; 92610; 92720; 92760; 92761; 92762; 92763; 92764; 92765; 92766; 92767; 94060; 95059